=== PATIENT | male | born 2005 | race Caucasian/White ===

== ENCOUNTER 2025-04-18 07:10 | Emergency (ER) | payer OTHER ==
[~2025-04-18] VITALS: Ht 170.2 cm; Wt 61.4 kg
[2025-04-18] MEDS ORDERED: SODIUM CHLORIDE 0.9% 1,000 ML IV PRN (07:45)
[2025-04-18] MEDS ORDERED: TAMSULOSIN HCL 0.4 MG CAP PO ONE (07:45)
[2025-04-18] MEDS ORDERED: KETOROLAC TROMETHAMINE 15 MG/ML VIAL IV ONE (07:45)
[2025-04-18 07:51] LABS: BASOPHILS 0.3 % (0.2-1.2); EOSINOPHILS 0.5 % (0.8-7.0); LYMPHOCYTES 8.9 % (21.8-53.1); MCH 30.4 PG (25.7-32.2); MCHC 35.9 g/dL (32.3-36.5); MCV 84.8 fL (79.0-92.2); MONOCYTES 5.7 % (5.3-12.2); NEUTROPHILS 84.1 % (34.0-67.9); RBC 4.93 M/uL (4.63-6.08)
[2025-04-18 07:55] LABS: ALT (SGPT) 64.0 U/L (14-59); AST (SGOT) 32.0 U/L (15-37); GLOMERULAR FILTRATION RATE,EST 127.0 mL/min (>60); PROTEIN, TOTAL 7.6 g/dL (6.4-8.2); UREA NITROGEN 14.0 mg/dL (7-18)
[2025-04-18 08:21] LABS: BLOOD/HGB, URINE LARGE (Negative); KETONE, URINE TRACE (Negative); LEUK ESTERASE, URINE NEGATIVE (negative); NITRITE, URINE NEGATIVE (negative)
[2025-04-18 08:31] LABS: BACTERIA, URINE NONE SEEN /hpf (negative); CASTS, URINE NONE SEEN \\lpf; CRYSTALS, URINE NONE SEEN (0-1+); EPITHELIAL CELLS, URINE 0 /lpf (0-1+); REFLEX CULTURE, URINE No (No)
[2025-04-18] MEDS ORDERED: ONDANSETRON ODT4 MG PO (09:50)
[2025-04-18] MEDS ORDERED: FLOMAX0.4 MG PO (09:50)
[2025-04-18] MEDS ORDERED: HYDROCODON-ACE1 EA10 PO (09:50)
[2025-04-18] MEDS ORDERED: IBU600 MG PO (09:50)
[2025-04-18 09:57] VITALS: BP 112/68
== END 2025-04-18 09:58 | disposition home or self-care (01) ==
LOC: ED 07:10
PROVIDERS: Emergency Medicine
DX: N13.2 Hydronephrosis with renal and ureteral calculous obstruction (principal)
CPT/HCPCS: 36415; 74177; 80053; 81001; 83690; 85025; 96361; 96374; 96375; 99284-25; J1885; J2405; J7030; Q9967

== ENCOUNTER 2025-05-20 17:34 | Emergency (ER) | payer OTHER ==
[~2025-05-20] VITALS: Ht 170.2 cm; Wt 59.6 kg
[~2025-05-20 17:34] MED LIST: FLOMAX0.4 MG PO; HYDROCODON-ACE1 EA10 PO; IBU600 MG PO; ONDANSETRON ODT4 MG PO
[2025-05-20 18:40] VITALS: BP 00/00
[2025-05-21] MEDS ORDERED: CIPRO500 MG PO (08:45)
[2025-05-21] MEDS ORDERED: PERCOCET 5-3251 EACH PO (08:45)
== END 2025-05-20 19:13 | disposition left against medical advice (07) ==
LOC: ED 17:34
DX: Z53.21 Procedure and treatment not carried out due to patient leaving prior to being seen by health care provider (principal)

== ENCOUNTER 2025-05-21 07:39 | Emergency (ER) | payer OTHER ==
[~2025-05-21] VITALS: Ht 170.2 cm; Wt 60.4 kg
--- OUTSIDE RECORDS SUMMARY | 2025-05-21 07:55 | XMS ---
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 ERamon VISIT COUNT (12 MO.) 3 [facility] TOTAL 3 NOTE: Visits indicate total known visits. ED/C VISIT TRACKING (12 MO.) 05/21/2025 07:39 [facility] [place] TYPE: Emergency COMPLAINT: - FLANK PAIN 05/20/2025 17:34 [facility] [place] TYPE: Emergency COMPLAINT: - FLANK PAIN DIAGNOSES: - Procedure and treatment not carried out due to patient leaving prior to being seen by health care provider 04/18/2025 07:10 [facility] [place] TYPE: Emergency COMPLAINT: - ABDOMINAL PAIN DIAGNOSES: - Hydronephrosis with renal and ureteral calculous obstruction - Lower abdominal pain, unspecified INPATIENT VISIT TRACKING (12 MO.) No inpatient visits to display in this time frame [email or web address]
[2025-05-21] MEDS ORDERED: ONDANSETRON 4 MG TAB ODT SL ONE (08:00)
[2025-05-21] MEDS ORDERED: TAMSULOSIN HCL 0.4 MG CAP PO ONE (08:00)
[2025-05-21] MEDS ORDERED: KETOROLAC TROMETHAMINE 15 MG/ML VIAL IM ONE (08:00)
[2025-05-21] MEDS ORDERED: OXYCODONE/APAP 5/325 TAB PO ONE (08:00)
[2025-05-21 08:13] LABS: BLOOD/HGB, URINE SMALL (Negative); KETONE, URINE SMALL (Negative); LEUK ESTERASE, URINE TRACE (negative); NITRITE, URINE POSITIVE (negative)
[2025-05-21 08:29] LABS: EPITHELIAL CELLS, URINE SQUAMOUS 1+ /lpf (0-1+)
[2025-05-21 08:30] LABS: BACTERIA, URINE 1+ /hpf (negative); CASTS, URINE HYALINE 1+ \\lpf; CRYSTALS, URINE NONE SEEN (0-1+); REFLEX CULTURE, URINE Yes (No)
[2025-05-21] MEDS ORDERED: CIPRO500 MG PO (08:45)
[2025-05-21] MEDS ORDERED: CEFTRIAXONE SODIUM 1 GM VIAL IM ONE (08:45)
[2025-05-21] MEDS ORDERED: PERCOCET 5-3251 EACH PO (08:45)
[2025-05-21 09:47] VITALS: BP 107/67
== END 2025-05-21 09:47 | disposition home or self-care (01) ==
LOC: ED 07:39
PROVIDERS: Emergency Medicine
DX: N13.6 Pyonephrosis (principal); Z79.899 Other long term (current) drug therapy
CPT/HCPCS: 74176; 81001; 87088; 96372; 99284-25; A9270; J0696; J1885